=== PATIENT | female | born 2000 | race Caucasian/White ===

== ENCOUNTER 2023-05-09 20:09 | Emergency (ER) | payer MEDICAID ==
[~2023-05-09] VITALS: Ht 162.6 cm; Wt 54.5 kg
[2023-05-09 20:19] VITALS: BP 125/73
[2023-05-09] MEDS ORDERED: dexamethasone sod phosphate 10mg/ml inj PO STA (20:23)
[2023-05-09] MEDS ORDERED: ketorolac trometh inj. 60 MG/2 ML VIAL IM ONE (20:25)
[2023-05-09] MEDS ORDERED: AMOX-117 PO (20:40)
== END 2023-05-09 21:08 | disposition home or self-care (01) ==
LOC: ER 20:11
DX: J02.9 Acute pharyngitis, unspecified (principal); R50.9 Fever, unspecified
CPT/HCPCS: 87880; 96372; 99283; J1100